=== PATIENT | female | born 1990 ===

== ENCOUNTER → 2023-06-29 | Outpatient (REF) | LOC: M EMP 09:44 | PROVIDERS: ATTEND Family Medicine | DX: Z11.52 Encounter for screening for COVID-19 (principal) ==

== ENCOUNTER → 2023-07-05 | Outpatient (REF) ==
[2023-07-05 11:35] LABS: RSV AMPLIFICATION NEGATIVE (NEGATIVE)
== END ==
LOC: M EMP 08:54
PROVIDERS: ATTEND Family Medicine
DX: Z11.52 Encounter for screening for COVID-19 (principal); Z20.828 Contact with and (suspected) exposure to other viral communicable diseases